=== PATIENT | female | born 1935 | race Caucasian/White ===

== ENCOUNTER 2019-01-31 11:14 | Outpatient (CLI) | payer MEDICARE ==
[2019-01-31 12:35] LABS: BASOPHILS # (AUTO) 0.01 x10^3/uL (0-0.1); BASOPHILS % (AUTO) 0 % (0-1); EOSINOPHILS # (AUTO) 0.02 x10^3/uL (0-0.4); EOSINOPHILS % (AUTO) 1 % (1-7); LYMPHOCYTES # (AUTO) 0.46 x10^3/uL (1-3.4); LYMPHOCYTES % (AUTO) 15 % (22-44); MD NO; MEAN CORPUSCULAR HGB CONC 33.1 g/dL (32.4-35.8); MEAN CORPUSCULAR VOLUME 96.6 fL (80-100); MEAN PLATELET VOLUME 6.1 fL (7.4-10.4); MONOCYTES # (AUTO) 0.31 x10^3/uL (0.2-0.8); MONOCYTES % (AUTO) 10 % (2-9); NEUTROPHILS # (AUTO) 2.24 x10^3/uL (1.8-6.8); NEUTROPHILS % (AUTO) 74 % (42-75); PLATELET COUNT 218 x10^3/uL (130-400); RED BLOOD COUNT 4.28 x10^6/uL (3.82-5.3); RED CELL DISTRIBUTION WIDTH 14.5 % (9.6-15.2)
[2019-01-31 12:46] LABS: ALBUMIN 4.1 g/dL (3.4-5.0); ANION GAP 4 mmol/L (5-15); CALCIUM 9.1 mg/dL (8.5-10.1); CHLORIDE 106 mmol/L (98-107)
[2019-01-31 12:49] LABS: ALANINE AMINOTRANSFERASE 17 U/L (12-78); ALKALINE PHOSPHATASE 68 U/L (45-117); BILIRUBIN,TOTAL 1.3 mg/dL (0.2-1.0); CREATININE 0.81 mg/dL (0.55-1.02); TOTAL PROTEIN 7.5 g/dL (6.4-8.2)
[2019-01-31] MEDS ORDERED: ACET325T14 PO (13:27)
== END 2019-01-31 23:59 | disposition home or self-care (01) ==
LOC: STAR 11:14
PROVIDERS: ATTEND Surgery
DX: Z01.818 Encounter for other preprocedural examination (principal); K64.9 Unspecified hemorrhoids; I25.2 Old myocardial infarction
CPT/HCPCS: 36415; 80053; 85025; 93005

== ENCOUNTER 2019-02-22 07:22 | Day surgery (SDC) | payer MEDICARE ==
[~2019-02-22] VITALS: Ht 163.8 cm; Wt 51.0 kg
[~2019-02-22 07:22] MED LIST: ACET325T14 PO; BUPIVACAINE LIPOSOME/PF 10ML INFIL ONE
[2019-02-22] MEDS ORDERED: LACTATED RINGERS 1,000 ML IV SCH (07:48)
[2019-02-22 07:49] VITALS: BP 136/85
[2019-02-22] MEDS ORDERED: LIDOCAINE-MPF 1%, 2ML INFIL ONE (08:00)
[2019-02-22] MEDS ORDERED: FENTANYL PF 100 MCG/2ML ONE ×2 (08:56→09:44)
[2019-02-22] MEDS ORDERED: ONDANSETRON 2MG/ML, 2ML ONE (08:57)
[2019-02-22] MEDS ORDERED: ROCURONIUM 10 MG/ML,10ML ONE (08:57)
[2019-02-22] MEDS ORDERED: PROPOFOL 10 MG/ML, 20ML ONE (08:57)
[2019-02-22] MEDS ORDERED: SUCCINYLCHOLINE 20 MG/ML, 10ML ONE (08:57)
[2019-02-22] MEDS ORDERED: HYDROmorphone 2 MG/ML, 1ML IVPush PRN (09:30)
[2019-02-22] MEDS ORDERED: FENTANYL PF 100 MCG/2ML IV PRN (09:30)
[2019-02-22] MEDS ORDERED: MEPERIDINE/PF 25MG/0.5ML IVPush PRN (09:30)
[2019-02-22] MEDS ORDERED: LABETALOL 5MG/ML, 20ML IV PRN (09:30)
[2019-02-22] MEDS ORDERED: hydrALAzine 20 MG/ML, 1ML IV PRN (09:30)
[2019-02-22] MEDS ORDERED: ACETAMINOPHEN 650 MG/20.3 ML UDC ONE (09:44)
[2019-02-22] MEDS: ACETAMINOPHEN 325 MG TABLET PO PRN ×2 (09:47→15:13)
[2019-02-22] MEDS ORDERED: OXYcodone 5 MG/5 ML ORAL.SOL UDC ONE (09:50)
[2019-02-22] MEDS ORDERED: OXYcodone 5 MG/5 ML ORAL.SOL UDC PO PRN (10:00)
== END 2019-02-22 15:22 | disposition home or self-care (01) ==
LOC: OUT 07:22
PROVIDERS: ATTEND Surgery
DX: K64.2 Third degree hemorrhoids (principal); K64.8 Other hemorrhoids
CPT/HCPCS: 46260; 88304; J0330; J2405; J2704; J3010; J7120